=== PATIENT | female | born 1970 | race Caucasian/White ===

== ENCOUNTER 2019-04-29 10:48 | Outpatient (CLI) | payer OTHER ==
--- NOTE | 2019-04-29 11:41 | RAD ---
EXAM: 3 views of the lumbosacral spine HISTORY: Low back pain COMPARISON: None FINDINGS: 3 lateral views of the lumbosacral spine shows normal height and alignment of the vertebral bodies and intervertebral discs without fracture or subluxation. Small osteophytes are seen throughout the lumbar spine with intervertebral disc space narrowing at L4/5. Alignment is unchanged with flexion and extension. The sacroiliac joints are unremarkable. IMPRESSION: Mild degenerative changes with unchanged alignment with bending
== END 2019-04-29 10:49 | disposition home or self-care (01) ==
LOC: TBSIIMAG 10:48
PROVIDERS: ATTEND Neurological Surgery
DX: M54.5 Low back pain (principal); M47.816 Spondylosis without myelopathy or radiculopathy, lumbar region
CPT/HCPCS: 72100

== ENCOUNTER 2019-05-21 05:34 | Day surgery (SDC) | payer OTHER ==
[2019-05-20 17:32] VITALS: BMI 26.9
--- NOTE | 2019-05-20 21:01 | HP ---
CHIEF COMPLAINT: "I'm here for back surgery." HISTORY OF PRESENT ILLNESS: Ms. Bauman is a 48-year-old female with lower back pain radiating to her right leg. Injections, nerve block, exercise, core strengthening, and time has not made the right leg pain any better. She still has the pain radiating through the gluteal area posterior thigh and sometimes the lateral calf. There is no new weakness or numbness. MEDICAL HISTORY: Denies any medical history. PAST SURGICAL HISTORY: No surgeries. HOSPITALIZATIONS: No past hospitalizations. FAMILY HISTORY: Father is alive. Mother is alive. Three children are alive, one with diabetes and cancer. SOCIAL HISTORY: She does not smoke. She does not have drug use or illicit drugs. She is a social alcohol drinker. ALLERGIES: NO KNOWN DRUG ALLERGIES. MEDICATIONS: 1. Estradiol 2 mg. 2. Omeprazole 40 mg. 3. Atorvastatin 40 mg. 4. Trazodone 100 mg. 5. Duloxetine 60 mg. 6. Bupropion 150 mg. REVIEW OF SYSTEMS: CONSTITUTIONAL: Denies fever or chills. EARS, NOSE, AND THROAT: Denies change in vision or hearing. CARDIAC: Denies chest pain, shortness of breath, or diaphoresis. PULMONARY: Denies shortness of breath, cough, or hemoptysis. GI: Denies fecal incontinence, abdominal pain, nausea, vomiting, diarrhea, change in stool formation, or consistency. : Denies urinary incontinence, trouble with urination, frequency of urination , or bloody urine. SKIN: Denies skin rash, bruising, bleeding, or skin masses. MUSCULOSKELETAL: As per history of present illness. NEUROLOGIC: As per history of present illness. PSYCHOLOGIC: Denies anxiety, depression, behavior changes, or crying. PHYSICAL EXAMINATION: VITAL SIGNS: Height 5 feet 6 inches, weight 155 pounds. HEENT: Pupils are equal. NECK: Normal, soft, and supple. No masses are noted. ROM is intact and nonpainful. NEUROLOGIC: Awake, alert, oriented x3. Memory, attention, fund of knowledge, and language are normal. Cranial nerves 2 through 12 grossly intact. Gait and station are normal. Motor exam, there is normal strength in the iliopsoas, quadriceps, hamstrings, anterior tib, EHL, gastroc, and toe flexors. Lower extremity exam, orthopedic, 2+ SLR on the right. DIAGNOSTIC STUDIES: MRI shows a right L4-5 HNP with stenosis and right L5 root stretch. X-ray of the lumbar spine, flex ex is stable. IMPRESSION: 1. Lumbar radiculopathy. 2. Intervertebral disk disorder with radiculopathy in the lumbar region. PLAN: 1. Lumbar radiculopathy stenosis, but no left leg symptoms at all. 2. Failed conservative therapy. 3. Right L4-5 microdiskectomy. 4. Anesthesia clearance. INFORMED CONSENT: I discussed the indications, risks, benefits, alternatives and expected results from surgery. The risks discussed included, but were not limited to, bleeding, infection, CSF leak, nerve damage, weakness, incontinence, cauda equina injury, paralysis, ventilator dependency, wheelchair dependency, loss of vision, cardiopulmonary complications of anesthesia or . Long-term complications discussed included but were not limited to spinal instability and future surgery. She understands the risk and is willing to proceed. Job ID: [id number] [facility]
[2019-05-21] MEDS ORDERED: EPINEPHrine 1 MG/ML AMP ONE (06:13)
[2019-05-21] MEDS ORDERED: Thrombin 5000 UNITS/5 ML VIAL ONE (06:13)
[2019-05-21] MEDS ORDERED: Bupivacaine PF 0.5% 30 ML VIAL ONE (06:13)
[2019-05-21] MEDS ORDERED: Fentanyl 100 MCG/2 ML VIAL ONE ×3 (06:57→07:38)
[2019-05-21] MEDS ORDERED: Sodium Chloride 0.9% 1,000 ML IV SCH (10:00)
[2019-05-21] MEDS ORDERED: diphenhydrAMINE 25 MG CAP PO PRN (10:01)
[2019-05-21] MEDS ORDERED: Meperidine HCl/PF 25 MG/ML VIAL ONE (10:02)
[2019-05-21] MEDS ORDERED: Promethazine 25 MG TAB PO PRN (10:07)
[2019-05-21] MEDS ORDERED: Milk Of Magnesia 30 ML UDCUP PO PRN (10:08)
[2019-05-21] MEDS ORDERED: Zolpidem Tartrate 5 MG TAB PO PRN (10:08)
[2019-05-21] MEDS ORDERED: traMADol HCl 50 MG TAB PO PRN (10:20)
[2019-05-21] MEDS ORDERED: Ondansetron PF 4 MG/2 ML Vial ONE (10:25)
[2019-05-21] MEDS ORDERED: Lidocaine 1% PF 5 ML VIAL ONE (10:25)
[2019-05-21] MEDS ORDERED: Dexamethasone 20 MG/5 ML VIAL ONE (10:25)
[2019-05-21] MEDS ORDERED: Glycopyrrolate 0.2 MG/ML 5 ML SYRINGE ONE (10:25)
[2019-05-21] MEDS ORDERED: PROPOFOL 200 MG/20 ML VIAL ONE (10:25)
[2019-05-21] MEDS ORDERED: EPHEDRINE 25 MG/5 ML SYRINGE ONE (10:25)
[2019-05-21] MEDS ORDERED: Rocuronium Bromide 10 MG/ML (10ML VIAL) ONE (10:25)
--- NOTE | 2019-05-21 10:52 | OP ---
DATE OF PROCEDURE: 05/21/2019 SERVICE: Neurosurgery. LOCAL DRIVER: Vincent Canales PA-C PREOPERATIVE INDICATION: Treat pain and prevent neurological deterioration. PREOPERATIVE DIAGNOSIS: Lumbar intervertebral disk disease at L4-L5 with right L5 radiculopathy. POSTOPERATIVE DIAGNOSIS: Lumbar intervertebral disk disease at L4-L5 with right L5 radiculopathy. PROCEDURES PERFORMED: Partial hemilaminectomy, medial facetectomy, foraminotomy, and microdiskectomy at right L4-L5, operating microscope. PREOPERATIVE MEDICATION: Ancef 2 g IV. DRAIN NUMBER: Zero. DRAIN TYPE: None. DESCRIPTION OF PROCEDURE: The patient was brought to the operating room. General endotracheal anesthesia was induced. The patient was positioned prone on the operating table with her chest and hips supported by gel-filled chest rolls. A lateral fluoro radiograph was used to plan our incision. The lumbar skin was sterilely prepped and draped. We opened with a 10-blade knife, and we controlled bleeding with bipolar and monopolar cautery. We used monopolar cautery to dissect to the thoracodorsal fascia. We incised the fascia on the right side of the midline and reflected the paraspinal muscles off the spinous process and laminae of L4 and L5. A self-retaining retractor was placed and a lateral fluoro radiograph to confirm the level upon which we were operating. We then used Kerrison rongeurs to perform a partial hemilaminectomy and medial facetectomy on the right side at L4-L5. The operating microscope was brought into the field. Under microscopic magnification and using microsurgical techniques, we removed the yellow ligament. We identified the common thecal sac and the L5 nerve root. We gently retracted these medially. There was a disk protrusion in the ventral epidural space that was densely calcified. We incised the disk mass, reduced much of the osteophyte back into the interspace with pushing curettes and then removed these with pituitary rongeurs. We ensured there was a wide foraminotomy over the L5 and the L4 nerve roots. We ensured that the nerve roots were not under stretcher compression at the completion of our diskectomy. We irrigated copiously with bacitracin irrigation. We infused local anesthetic in the paraspinal muscles. We closed the wound in anatomical layers. We applied a sterile dressing. This was a clean case, no contamination. Job ID: [id number]
[2019-05-21] MEDS ORDERED: CEFAZOLIN 2 GM in Premix Bag 1 BAG IVPB SCH (15:00)
[2019-05-21] MEDS ORDERED: tiZANidine HCl 4 MG TAB PO SCH (21:00)
== END 2019-05-21 12:05 | disposition home or self-care (01) ==
LOC: SDC 05:34
PROVIDERS: ATTEND Neurological Surgery
PROC: 0SB20ZZ Excision of Lumbar Vertebral Disc, Open Approach (ICD-10-PCS; principal; 2019-05-21)
DX: M48.061 Spinal stenosis, lumbar region without neurogenic claudication (principal); M51.16 Intervertebral disc disorders with radiculopathy, lumbar region; E78.5 Hyperlipidemia, unspecified; F32.9 Major depressive disorder, single episode, unspecified; Z79.899 Other long term (current) drug therapy
CPT/HCPCS: 76000; J0171; J0690; J1100; J2001; J2175; J2405; J2704; J3010; J3370; J3490; S0020

== ENCOUNTER 2019-06-09 08:49 | Inpatient (IN) | payer OTHER ==
[2019-06-09] MEDS ORDERED: Morphine 2 MG/ML SYRINGE ONE (09:13)
[2019-06-09] MEDS ORDERED: Morphine 4 MG/ML VIAL ONE (09:13)
[2019-06-09] MEDS ORDERED: Ondansetron PF 4 MG/2 ML Vial ONE ×4 (09:30→11:42)
[2019-06-09] MEDS ORDERED: Glycopyrrolate 0.2 MG/ML 5 ML SYRINGE ONE (09:50)
[2019-06-09] MEDS ORDERED: PHENYLEPHRINE-NS 100 MCG/ML 10 ML SYRINGE ONE (09:50)
[2019-06-09] MEDS ORDERED: Lidocaine 1% PF 5 ML VIAL ONE (09:50)
[2019-06-09] MEDS ORDERED: PROPOFOL 200 MG/20 ML VIAL ONE (09:50)
[2019-06-09] MEDS ORDERED: Rocuronium Bromide 10 MG/ML (10ML VIAL) ONE (09:50)
[2019-06-09 10:19] LABS: #Eosinphils 0.2 thou/uL (0.0-0.7); #Lymphocytes 1.4 thou/uL (1.20-3.40); #Monocytes 0.8 thou/uL (0.11-0.59); #Neutrophils 11.1 thou/uL (1.40-6.50); %Basophils 0.3 % (0.0-1.0); %Eosinophils 1.7 % (0.0-10.0); %Lymphocytes 10.3 % (21.0-51.0); %Monocytes 6.1 % (0.0-10.0); %Neutrophils 81.6 % (42.0-75.0); Hemoglobin 12.6 g/dL (12.0-16.0); Mean Corpuscular HGB CONC 33.8 g/dL (32.0-36.0); Mean Corpuscular Hemoglobin 30.3 pg (27.0-31.0); Mean Corpuscular Volume 89.7 fL (78.0-98.0); Mean Platelet Volume 8.5 fL (7.4-10.4); Platelet Count 298 thou/uL (130-400); RBC Distribution Width 11.3 % (11.5-14.5); Red Blood Cell (RBC) Count 4.14 mill/uL (4.20-5.40); White Blood Cell (WBC) Count 13.7 thou/uL (4.8-10.8)
[2019-06-09 10:35] LABS: ALT (SGPT) 10 U/L (8-55); AST (SGOT) 15 U/L (5-34); Albumin 3.5 g/dL (3.5-5.0); Alkaline Phosphatase 67 U/L (40-110); Anion Gap 11 mmol/L (10-20); BUN (Urea Nitrogen) 10 mg/dL (7.0-18.7); Bilirubin, Total 0.5 mg/dL (0.2-1.2); Calc. Creatinine Clearance 0 mL/min (70-130); Calcium 8.6 mg/dL (7.8-10.44); Carbon Dioxide 28 mmol/L (22-29); Chloride 104 mmol/L (98-107); Estimated GFR-MDRD 82; Globulin 2.1 g/dL (2.4-3.5); Glucose 82 mg/dL (70-105); Potassium 3.9 mmol/L (3.5-5.1); Protein, Total 5.6 g/dL (6.0-8.3); Sodium 139 mmol/L (136-145)
--- NOTE | 2019-06-09 11:10 | MRI ---
MRI lumbar spine without and with gadolinium contrast HISTORY: Back pain. Increasing wound drainage from recent surgery. FINDINGS: Centered within the deep subcutaneous tissues of the lower back, an irregular shaped periph erally enhancing fluid collection at the postoperative bed extends over 7.1 cm length from the L4 to the S1 levels. It is 3.6 cm greatest depth by 3.4 cm greatest width. The fluid collection does not extend into the deeper soft tissues. It is surrounded by edema. Edema without fluid collection and enhancement are also present within the postoperative bed at the p ostoperative elements and within the posterior subcutaneous tissues extending superiorly to the L1 level. The conus medullaris has a normal appearance. No enhancing central canal lesions. Vertebral body heights are maintained. Scattered small hemangiomas within the bone marrow. Desiccatio n of the lowest 3 intervertebral discs. T12-L1, L1-2, L2-3: Mild osteophytosis. Minimal disc bulges. Central canal and neural foramina are pa tent. L3-4: Disc space narrowing. Mild posterior disc bulge and circumferential degenerative changes. Moder ate stenosis of the central canal. Mild right and moderate to severe left foraminal stenoses. L4-5: Discogenic endplate changes of the bone marrow most pronounced at this level. Disc space narrow ing and posterior disc bulge. Right laminectomy defect. With edema and enhancement consistent with recent surgery. Circumferential degenerative changes. Moderate central canal stenosis persists. Far r ight lateral disc protrusion with severe stenosis of the right neural foramen. Moderate to severe stenosis left neural foramen. L5-S1: Mild osteophytosis. Central canal is patent. Moderate bilateral foraminal stenoses. IMPRESSION : Large deep subcutaneous irregular shaped peripherally enhancing fluid collection at the lower back, n ot extending into the deeper tissues. No enhancing abnormalities or fluid collections at the deep postoperative bed. Multilevel degenerative changes, including central canal and foraminal stenoses as detailed above.
[2019-06-09] MEDS ORDERED: Morphine 10 MG/ML VIAL ONE (11:41)
[2019-06-09] MEDS ORDERED: Midazolam HCl 2 mg/2 ml Vial ONE (12:42)
[2019-06-09] MEDS ORDERED: HYDROmorphone 0.5 MG/0.5 ML SYRINGE ONE (12:42)
[2019-06-09] MEDS ORDERED: Fentanyl 100 MCG/2 ML VIAL ONE ×3 (12:42→15:20)
[2019-06-09] MEDS ORDERED: Lidocaine 2% Jelly 5 ML TUBE ONE (12:42)
[2019-06-09] MEDS ORDERED: Promethazine HCl 25 MG/ML VIAL IM PRN ×2 (12:55→14:27)
[2019-06-09] MEDS ORDERED: Promethazine 25 MG TAB PO PRN (12:55)
[2019-06-09] MEDS ORDERED: Morphine 2 MG/ML SYRINGE SLOW IVP PRN (12:55)
[2019-06-09] MEDS ORDERED: traMADol HCl 50 MG TAB PO PRN ×2 (12:55)
[2019-06-09] MEDS ORDERED: Acetaminophen/Codeine 30-300mg Tablet PO PRN ×2 (12:55)
[2019-06-09] MEDS ORDERED: tiZANidine HCl 4 MG TAB PO PRN (12:55)
[2019-06-09] MEDS ORDERED: Ondansetron PF 4 MG/2 ML Vial IVP PRN (12:55)
[2019-06-09] MEDS ORDERED: Acetaminophen 325 MG TAB PO PRN (12:55)
[2019-06-09] MEDS ORDERED: Sodium Chloride 0.9% 10 ML ONE (13:02)
[2019-06-09] MEDS ORDERED: traZODone HCl 50 MG TAB PO PRN (13:20)
[2019-06-09] MEDS ORDERED: Magnevist 469MG/ML 20 ML VIAL ONE (13:36)
[2019-06-09] MEDS ORDERED: CEFAZOLIN 2 GM in Premix Bag 1 BAG IVPB SCH (14:00)
[2019-06-09] MEDS ORDERED: Promethazine HCl 25 MG/ML VIAL SLOW IVP PRN (14:27)
[2019-06-09] MEDS ORDERED: Ondansetron HCl/PF 4 MG/2 ML Vial IVP PRN (14:27)
--- NOTE | 2019-06-09 15:26 | OP ---
DATE OF PROCEDURE: 06/09/2019 GLASS GRINDER: Meri Darnell PA-C. PROCEDURES PERFORMED: Exploration of lumbar wound and washout of lumbar wound. DESCRIPTION OF PROCEDURE: The patient was brought to the operating room and intubated. She was rolled in the prone position on gel-filled chest rolls. Previous incision was re-opened. We encountered semi-purulent fluid, that was swabbed in two different locations in the wound. There did not seem to be significant fascial penetration. The wound was then extensively irrigated with bacitracin irrigation, and a necrotic debris as well as an old suture was removed. Vancomycin powder was applied, and the wound was closed in anatomic layers over drain. Job ID: [id number]
--- NOTE | 2019-06-09 15:32 | PRG ---
DATE OF SERVICE: 06/09/2019 SUBJECTIVE: The patient is a 48-year-old woman three weeks out from lumbar microdiskectomy by Dr. Beckwith. She has been doing well, but recently has developed a feeling of fever and even some chills and developed some purulent drainage out of the superior aspect of her wound. She was evaluated here in the emergency room, found to be afebrile with mild leukocytosis. She did have some redness and drainage at the superior aspect of the wound. MRI scan has been performed showing a fluid collection posteriorly. IMPRESSION AND PLAN: We will take to surgery for same bacteriology and washout. Discussed with the patient. Discussed the indications, benefits, and alternatives. She expressed understanding and wished to proceed. Job ID: [id number]
[2019-06-09] MEDS: Sodium Chloride 0.9% 1,000 ML IV SCH (16:00)
[2019-06-09] MEDS ORDERED: [UNRECOGNIZED DRUG - REMARK] IVPB PRN (16:32)
[2019-06-09] MEDS: Piperacillin/Tazobactam 3.375 GM in Sodium Chloride 0.9% 100 ML IVPB SCH ×2 (17:46→23:39)
[2019-06-09] MEDS: Vancomycin 1 GM in Premix Bag 1 BAG IVPB SCH (17:50)
[2019-06-09 18:34] VITALS: BMI 28.3
--- NOTE | 2019-06-09 18:52 | HP ---
HISTORY OF PRESENT ILLNESS: The patient is a 48-year-old female with a past medical history of GERD, depression, who is 2-1/2 weeks status post a right L4-L5 microdiskectomy on 05/20, who presented to the ER earlier today for increased right-sided back pain with radiation to the right hip and subjective fever/chills. The patient reports that over the weekend, she developed gradually progressive severe right-sided back pain. This radiates into the right low back and right hip region. Also developed new serous drainage from the incision. She has no classic radicular features. This was associated with a feeling of subjective fever and chills at home. She presented to the emergency department for further evaluation. At that time , labs were notable for an elevated WBC at 13.5 as well as an elevated CRP at 6.5. Her ESR was normal. An MRI of the lumbar spine with and without contrast was done, which was notable for a large fluid collection approximately 7 x 3.5 cm at the surgical bed. PAST MEDICAL HISTORY: The patient has a past medical history of GERD and depression. PAST SURGICAL HISTORY: No prior surgeries other than her recent right L4-L5 microdiskectomy on 05/20. She has no prior hospitalizations other than her outpatient surgery on 05/20. FAMILY HISTORY: Noncontributory. SOCIAL HISTORY: She does not smoke, drink, or use any drugs. ALLERGIES: SHE HAS NO KNOWN ALLERGIES. CURRENT MEDICATION LIST: 1. Estradiol 2 mg tablet. 2. Omeprazole 40 mg tablet. 3. Atorvastatin 40 mg tablet. 4. Trazodone 100 mg tablet. 5. Duloxetine 60 mg tablet. 6. Bupropion 150 mg tablet. REVIEW OF SYSTEMS: Per HPI. PHYSICAL EXAMINATION: GENERAL: The patient is awake, alert, in no acute distress. VITAL SIGNS: She is currently afebrile and she has normal vital signs. HEENT: Head, normocephalic and atraumatic. Eyes, PERRLA. Extraocular movements are intact. ENT, oral mucosa is pink, intact, and moist. She has normal voice. NECK: Nontender. Free active range of motion. No meningismus or nuchal rigidity. CARDIAC: Regular rate and rhythm. MUSCULOSKELETAL: She is moving all 4s without difficulty. No focal motor weakness. No reflex asymmetry. No positive straight leg raise. BACK: Her incision is intact, but is slightly red over the superior part of the incision. Some active serous drainage from the top of the incision. She had some slight swelling to the right side of the incision, this area is tender to touch. NEURO: A and O x4. No focal neurologic deficits are appreciated. ASSESSMENT AND PLAN: The patient is now 2-1/2 weeks status post right L4-L5 microdiskectomy with a new large postoperative fluid collection, subjective fever, elevated white count, and CRP. These are concerning for underlying wound infection. We will take her to the OR for lumbar wound washout. I will also start her on broad-spectrum IV antibiotics, Vancomycin and Zosyn. Pharmacy will assist with dosing of the vancomycin. I have consulted Dr. Walters for assistance in management of this likely infectious process as well as the Medical Team for medical management. Dr. Velazco is in agreement with this plan. Job ID: [id number] MTDD
[2019-06-10] MEDS: Sodium Chloride 0.9% 1,000 ML IV SCH ×3 (03:06→13:39)
[2019-06-10] MEDS: Vancomycin 1 GM in Premix Bag 1 BAG IVPB SCH (04:43)
[2019-06-10 05:33] LABS: Band 3 % (5-11); Hemoglobin 11.6 g/dL (12.0-16.0); Hypochromia SLIGHT = 6-15 cells (100X) (0-5/hpf); Lymphocytes 5 % (21-51); MDiff Complete? YES; Mean Corpuscular Hemoglobin 30.8 pg (27.0-31.0); Mean Corpuscular Volume 90.5 fL (78.0-98.0); Mean Platelet Volume 8.2 fL (7.4-10.4); Monocytes 9 % (0-10); Neutrophil 83 % (42-75); Platelet Count 320 thou/uL (130-400); Platelet Morphology Comment Appears Adequate; RBC Distribution Width 11.3 % (11.5-14.5); Red Blood Cell (RBC) Count 3.78 mill/uL (4.20-5.40); White Blood Cell (WBC) Count 13.2 thou/uL (4.8-10.8)
[2019-06-10] MEDS: Piperacillin/Tazobactam 3.375 GM in Sodium Chloride 0.9% 100 ML IVPB SCH ×2 (06:08→13:02)
--- NOTE | 2019-06-10 07:14 | PRG ---
DATE OF SERVICE: 06/10/2019 She is one day out from irrigation and debridement of a postoperative fluid collection. She feels markedly better than she did before surgery yesterday. Following her diskectomy, she never had any return of her radicular pain, but over the days leading up to readmission, she had worsening back pain, fever, and malaise. All that has gone away. Overnight, no fevers are recorded. Her vital signs were stable. Her neurological examination is excellent she is ambulatory. The drain put out 25 mL. My plan today is to ask our colleagues in Infectious Disease if there is an antibiotic regimen that would allow her to be dismissed from the hospital today and narrow down the regimen once the cultures and sensitivities are back. Given the description of the fluid from Dr. Velazco, and the gram-positive cocci on the Gram stain, I suspect a Staph epidermidis infection, unclear whether it is going to be sensitive or resistant to the penicillins. Job ID: [id number] MTDD
[2019-06-10] MEDS ORDERED: Bupropion 150 MG SR TAB PO SCH ×2 (09:00→21:00)
[2019-06-10] MEDS ORDERED: DULoxetine 60 MG CAP PO SCH ×2 (09:00→21:00)
--- NOTE | 2019-06-10 12:04 | PDOC.EVN ---
Event Note - Event Note Event Note: Hospitalist consult dictated; Lumbar post-oeprative fluid/abscess - gram stain GPC in pairs[strep] and clusters[staph] michelle grew s.aureus pending sensitivity on vanc + zosyn.
--- NOTE | 2019-06-10 13:06 | CON ---
DATE OF CONSULTATION: REASON FOR CONSULT: Medical management. HISTORY OF PRESENT ILLNESS: A 48-year-old female with history of depression, GERD, hyperlipidemia who presented secondary to back pain and subjective fever with recent history of L4-L5 diskectomy for a herniated disk surgical intervention on May 20. The patient's presentation initially was back pain radiating to the right hip and lower back. Also, labs with white count of 13.5 as well as CRP of 6.5. MRI showed large fluid collection in the lumbar area. Subsequently, the patient undergone a drainage of the postoperative fluid collection. She had undergone lumbar wound washout yesterday. Subsequently, she was given Ancef as well as vancomycin and Zosyn. Dr. Walters will be following for antibiotic choice for discharge. Hospitalist consulted for other comorbid management if any. The patient has no history of diabetes or hypertension. She denies any constipation, diarrhea, or urinary symptoms. She has a history of depression and being treated adequately. REVIEW OF SYSTEMS: Thirteen-point review of systems reviewed with the patient and pertinent addressed in the History of Present Illness, rest are negative. ALLERGIES: SHE IS ALLERGIC TO HYDROCODONE. PAST MEDICAL HISTORY: GERD, hyperlipidemia, and depression. PAST SURGICAL HISTORY: Hysterectomy in 1999. SOCIAL HISTORY: The patient does not smoke or drink alcohol. She lives with her spouse and she has 3 grown-up kids. FAMILY HISTORY: Significant for hypertension and hyperlipidemia. HOME MEDICATIONS: 1. Estradiol 2 mg at bedtime. 2. Cymbalta 60 mg at bedtime. 3. Lipitor 40 mg at bedtime. 4. Bupropion 150 mg daily. 5. Omeprazole 40 mg daily. 6. Trazodone 100 mg daily. PHYSICAL EXAMINATION: VITAL SIGNS: Temperature 98.3, pulse 63, blood pressure 120/73, and saturating 93% on room air. The patient is alert and oriented x4, very healthy, young-looking female, resting comfortably. She denies any pain currently. She is quite anxious to go home. CARDIOVASCULAR: Regular rate and rhythm without murmurs, rubs, or gallops. LUNGS: Clear to auscultation bilaterally without wheezing, rales, or rhonchi. ABDOMEN: Soft, nontender, and nondistended. She has a drain in her back, serosanguineous fluid noted in the bulb. PSYCHIATRIC: Appropriate mood and affect. LABORATORY DATA: CMP panel in the normal range. CRP 6.51. Her white count is 13.2, hemoglobin 11.6, and platelet of 320. Her lumbar fluid washout grew Staph aureus currently. IMPRESSION AND PLAN: This is a 48-year-old female with recent laminectomy, presenting with postoperative fluid collection versus abscess that has been drained yesterday. Currently, she is on vancomycin and Zosyn. Her white count is coming down. Her fluid Gram-stain shows gram-positive cocci in pairs and clusters and the culture grew Staphylococcus aureus. Sensitivity pending. She would obviously benefit either with Bactrim versus Augmentin versus doxycycline upon discharge. We will await for further ID recommendation as well. I appreciate the consult. Please call us if you have any further questions. Depression. The patient is on duloxetine as well as bupropion. Hyperlipidemia. Follow with primary care physician for periodic lipid level check. Nothing further to add. Job ID: [id number] MTDD
[2019-06-10 15:10] VITALS: BP 135/78; TEMP 98.4
--- NOTE | 2019-06-10 18:05 | CON ---
DATE OF CONSULTATION: REASON FOR CONSULTATION: Postop infection. HISTORY OF PRESENT ILLNESS: A 48-year-old who has a history of hyperlipidemia and chronic low back pain with a disk herniation, who underwent laminectomy on May 20. The patient initially did well, but then developed progressively worsening pain, which she felt was a pulled muscle, but it became obvious that there was an infection. She had an I and D by Dr. Velazco, and it appeared that the process appears to be superficial both on clinical inspection as well as on radiological evaluation. She is feeling marked good improvement and pretty much 100% resolution of the pain. Currently, denies headaches, visual symptoms, sore throat, odynophagia, or dysphagia. No respiratory symptoms. No abdominal pain. Voiding without difficulty. No constipation. The back pain has markedly improved. PAST MEDICAL HISTORY: GERD, depression, chronic low back pain, hyperlipidemia. PAST SURGICAL HISTORY: Microdiskectomy, L4-L5. FAMILY HISTORY: Noncontributory. SOCIAL HISTORY: Never smoker. ALLERGIES: NONE. CURRENT MEDICATIONS: 1. Codeine. 2. Wellbutrin. 3. Cymbalta. 4. Morphine. 5. Zofran. 6. Protonix. 7. Zosyn. 8. Vancomycin. PHYSICAL EXAMINATION: VITAL SIGNS: T-max 98.6, blood pressure 130/70, pulse 74, respirations 16, and O2 saturation 95%. GENERAL: Appears well. She has a drain still in the surgical site. Apparently, she is going to go home with a drain. HEENT: Normal. NECK: Supple. LUNGS: Symmetric and clear breath sounds. S1 and S2 regular rate. ABDOMEN: Soft, not distended or tender. No ascites. No bladder distention. EXTREMITIES: No other joint inflammatory process noted. NEURO: Nonfocal. LABORATORY DATA: White cell count is 13.7, 13.2, hemoglobin 11.6, platelets 320 with 82% neutrophils. Chemistry normal. Albumin 3.5. Microbiology with Staph aureus, pending susceptibilities should be ready later tonight or maybe first thing in the morning. IMAGING STUDIES: Showed an MRI with abscess in the lower back, which does not extend into the deeper tissues. ASSESSMENT: Chronic low back pain, laminectomy with postoperative Staphylococcus aureus infection with pending susceptibilities. The inflammatory process seems to be limited to the superficial layers, and she is clinically stable to be discharged. It does not look like she had blood culture submitted, and I will go ahead and submit 2 sets of blood cultures to at least have some documentation. Now, we had blood culture submitted and let her go home on oral Zyvox. I gave her 3 days' worth of medication to her local pharmacy, and by tomorrow, I asked her to give me a call and I will let her know if we are going to be able to switch her to a cheaper medication or if we will have to continue with Zyvox. We will follow her up in clinic in the next 1 to 2 weeks. Job ID: [id number]
[2019-06-10] MEDS ORDERED: Linezolid 600 MG TAB PO SCH (21:00)
--- NOTE | 2019-06-11 10:09 | DIS ---
DATE OF ADMISSION: 06/09/2019 DATE OF DISCHARGE: 06/10/2019 HOSPITAL COURSE: Ms. Bauman is a 48 yo female, postop right L4-5 microdiskectomy on 05/20. She was seen in the ED on 06/09/2019 and evaluated for lower back pain and developed new serous drainage from the incision site. MRI showed fluid collection, question of postoperative abscess infection. She was brought to the operating room for immediate washout, and a ED drain was placed. Lumbar swab was collected, which grew out Staphylococcus aureus. Infectious Disease was consulted, and the patient was discharged postop day 1 from surgical floor with blood cultures x2 and Zyvox for MRSA coverage. ID would change the antibiotics once sensitivities came back. Vital signs during her stay were 132/84 for blood pressure, temperature 98.9. No fevers were noted in the electronic notes. CONDITION ON DISCHARGE: The patient had no emergencies. Condition was stable for discharge. MEDICATIONS: Home-going medications were reviewed. FOLLOWUP: Followup arrangements made by our process coordinator in the clinic and called to the patient. ACTIVITIES: Restrictions were reviewed in person. Wound care showers are acceptable. The patient should pat the incision dry, but not submerge it under the surface of the body of water for two months. Job ID: [id number] MTDD
--- NOTE | 2019-06-11 22:08 | PQF ---
[employer] Crystal Reports Winform Viewer DMITRY HOWELL JASON MD *r* [id number] SURG B- [id number] CLINICAL DOCUMENTATION CLARIFICATION FORM: POST DISCHARGE Addendum to original discharge summary date: ____ Late entry note date: __ DATE: 06/11/19 ATTN: Karthik Vaz Please exercise your independent, professional judgment in responding to the clarification form. Clinical indicators are provided on the bottom of this form for your review Can you please further clarify the diagnosis fo the patient? Please check appropriate box(es): [ ] Sepsis due to post operative wound infection/abscess [ ] Post operative wound infection/abscess without sepsis [ ] Other diagnosis please specify [ ] Unable to determine In addition, please specify: Present on Admission (POA): [ ] Yes [ ] No [ ] Unable to determine For continuity of documentation, please document condition throughout progress notes and discharge summary. Thank You. CLINICAL INDICATORS - SIGNS / SYMPTOMS / LABS Microbiology- 06/08 lumbar swab Methicillin resistant S.aureus ED Provider pg.3- wound infection H and P pg.1- Develop new serous drainage from the incision. H and P pg.1- elevated WBC at 13.5 RISK FACTORS status post Microdiskectomy- H and P pg.1 Postop infection- Consult pg.1 Lumbar post-operative fluid/abscess- Event note TREATMENTS: Exploration of lumbar wound ans washout of lumbar wound- OP Report pg.1 Lumbar Spine MRI 06/08 IV Antibiotics- MAY IV Fluids- MAR Infectious Consult- Dr. Walters Lumbar swab- Microbiology (This form is maintained as a part of the permanent medical record) 2014 [employer]. All Rights Reserved [email or web address]
--- NOTE | 2019-06-11 22:15 | PQF ---
[facility] [facility] Crystal Reports DMITRY Huerta JONATHAN A MD [id number] [facility] B- 3325 [id number] CLINICAL DOCUMENTATION CLARIFICATION FORM: POST DISCHARGE Addendum to original discharge summary date: ____ Late entry note date: __ DATE: 06/11/19 ATTN: Praveen Velazco Please exercise your independent, professional judgment in responding to the clarification form. Clinical indicators are provided on the bottom of this form for your review Can you please further clarify the procedure being performed to the patient? Please check appropriate box(s): [ x ] Excisional Debridement: [ x ] Excised [ ] Cut away [ ] Other: Depth / layer: (deepest layer of debridement): [ ] Skin[ ] SubQ Tissue [ x ] Fascia [ ] Muscle [ ] Tendon [ ] Bone Appearance of wound: (e.g., down to fresh bleeding tissue, etc.)___ Margins: (please specify): / x x Instruments used: [ ] Scissors [ ] Scalpel [ ] Curette [ ] Soft tissue clipper [ ] Other: [ ] Non-excisional Debridement: (Removal by flushing, brushing, chemical, or washing) Depth / layer: (deepest layer of debridement): [ ] Skin[ ] Subcutaneous [ ] Fascia [ ] Muscle [ ] Tendon [ ] Bone [ ] Incision and Drainage only (No Debridement): Depth:[ ] Skin [ ] Subcutaneous [ ] Fascia [ ] Muscle [ ] Tendon [ ] Bone [ ] Escharectomy [ ] Other procedure diagnosis [ ] Unable to determine For continuity of documentation, please document condition throughout progress notes and discharge summary. Thank You. CLINICAL INDICATORS - SIGNS / SYMPTOMS / LABS OP Report pg.1- Exploration of lumbar wound ans washout of lumbar wound OP Report pg.1- previous incision was reopened OP report pg.1- there did not seem to be significant facial penetration OP report pg.1- the wound was the extensively irrigated with bacitracin irrigation and a necrotic debris as well an old sure was removed PN 4/6- irrigation and debridement of postoperative fluid collection RISK FACTORS Lumbar post-operative fluid/abscess- Event note status post Microdiskectomy- H and P pg.1 Postop infection- Consult pg.1 TREATMENTS: Exploration of lumbar wound ans washout of lumbar wound-OP Report pg.1 Lumbar Spine MRI 06/08 IV Antibiotics- MAR IV Fluids- MAR (This form is maintained as a part of the permanent medical record) 2014 [employer] All Rights Reserved [email or web address]
--- NOTE | 2019-06-13 09:46 | PQF ---
DMITRY HOWELL NEO ISABEL [id number] SURG B- 3325 [id number] CLINICAL DOCUMENTATION CLARIFICATION FORM: POST DISCHARGE Addendum to original discharge summary date: ____ Late entry note date: __ DATE: 06/13/19 ATTN: Dr. Darnell Please exercise your independent, professional judgment in responding to the clarification form. Clinical indicators are provided on the bottom of this form for your review Can you please further clarify the diagnosis fo the patient? Please check appropriate box(es): [ ] Sepsis due to post operative wound infection/abscess [ X ] Post operative wound infection/abscess without sepsis [ ] Other diagnosis please specify [ ] Unable to determine In addition, please specify: Present on Admission (POA): [X ] Yes [ ] No [ ] Unable to determine For continuity of documentation, please document condition throughout progress notes and discharge summary. Thank You. CLINICAL INDICATORS - SIGNS / SYMPTOMS / LABS Microbiology- 06/08 lumbar swab Methicillin resistant S.aureus ED Provider pg.3- wound infection ED- VITAL SIGNS: BP 132/82, Pulse 105, Resp 20, Temp 98.9 H and P pg.1- Develop new serous drainage from the incision. H and P pg.1- elevated WBC at 13.5 Consultation- Postoperative Staphylococcus aureus infection with pending susceptibles Event Note Dr. Tucker- Lumbar post-operative fluid/abscess- gram stain GPC in pairs (strep) and clusters (staph). Maegan grew s.aureus RISK FACTORS status post Microdiskectomy- H and P pg.1 Postop infection- Consult pg.1 Lumbar post-operative fluid/abscess- Event note TREATMENTS: Exploration of lumbar wound ans washout of lumbar wound- OP Report pg.1 Lumbar Spine MRI 06/08 IV Antibiotics- MAR IV Fluids- MAR Infectious Consult- Dr. Walters Lumbar swab- Microbiology (This form is maintained as a part of the permanent medical record) 2014 [employer] All Rights Reserved Ilya [email or web address] PARVEZ
== END 2019-06-10 18:20 | disposition home or self-care (01) | DRG 858 ==
LOC: ERS 08:49 → SURG B 13:12
PROVIDERS: ADMIT Student in an Organized Health Care Education/Training Program; ATTEND Student in an Organized Health Care Education/Training Program
PROC: 0JB70ZZ Excision of Back Subcutaneous Tissue and Fascia, Open Approach (ICD-10-PCS; principal; 2019-06-09)
PROC: 0J970ZZ Drainage of Back Subcutaneous Tissue and Fascia, Open Approach (ICD-10-PCS; 2019-06-09)
DX: T81.41XA Infection following a procedure, superficial incisional surgical site, initial encounter (principal); Y83.8 Other surgical procedures as the cause of abnormal reaction of the patient, or of later complication, without mention of misadventure at the time of the procedure; F41.9 Anxiety disorder, unspecified; F32.9 Major depressive disorder, single episode, unspecified; K21.9 Gastro-esophageal reflux disease without esophagitis; E78.5 Hyperlipidemia, unspecified; N20.0 Calculus of kidney; B95.62 Methicillin resistant Staphylococcus aureus infection as the cause of diseases classified elsewhere; E78.00 Pure hypercholesterolemia, unspecified; Z88.5 Allergy status to narcotic agent; Z79.899 Other long term (current) drug therapy; Z90.710 Acquired absence of both cervix and uterus
CPT/HCPCS: 36415; 72158; 80053; 82565; 84520; 85025; 85652; 86140; 87040; 87070; 87077; 87186; 87205; 96361; 96374; 96375; 96376; A9579; J0690; J1170; J2001; J2250; J2270; J2405; J2543; J2704; J3010; J3370; J3490

== ENCOUNTER 2019-06-14 19:15 | Emergency (ER) | payer OTHER ==
[~2019-06-14 19:15] MED LIST: Magnevist 469MG/ML 20 ML VIAL ONE
[2019-06-14 19:52] LABS: #Basophils 0.1 thou/uL (0.0-0.2); #Eosinphils 0.5 thou/uL (0.0-0.7); #Lymphocytes 2.4 thou/uL (1.20-3.40); #Monocytes 0.6 thou/uL (0.11-0.59); %Basophils 0.9 % (0.0-1.0); %Eosinophils 6.2 % (0.0-10.0); %Monocytes 6.6 % (0.0-10.0); %Neutrophils 58.2 % (42.0-75.0); Hemoglobin 12.9 g/dL (12.0-16.0); Mean Corpuscular HGB CONC 34.2 g/dL (32.0-36.0); Mean Corpuscular Hemoglobin 30.7 pg (27.0-31.0); Mean Corpuscular Volume 89.8 fL (78.0-98.0); Mean Platelet Volume 7.7 fL (7.4-10.4); Platelet Count 398 thou/uL (130-400); RBC Distribution Width 11.4 % (11.5-14.5); Red Blood Cell (RBC) Count 4.22 mill/uL (4.20-5.40); White Blood Cell (WBC) Count 8.6 thou/uL (4.8-10.8)
[2019-06-14 20:32] LABS: ALT (SGPT) 11 U/L (8-55); AST (SGOT) 15 U/L (5-34); Albumin 3.6 g/dL (3.5-5.0); Alkaline Phosphatase 66 U/L (40-110); Anion Gap 12 mmol/L (10-20); BUN (Urea Nitrogen) 11 mg/dL (7.0-18.7); Bilirubin, Total 0.2 mg/dL (0.2-1.2); Calc. Creatinine Clearance 0 mL/min (70-130); Calcium 8.8 mg/dL (7.8-10.44); Carbon Dioxide 28 mmol/L (22-29); Chloride 104 mmol/L (98-107); Estimated GFR-MDRD 82; Globulin 2.5 g/dL (2.4-3.5); Glucose 105 mg/dL (70-105); Potassium 3.8 mmol/L (3.5-5.1); Protein, Total 6.1 g/dL (6.0-8.3); Sodium 140 mmol/L (136-145)
--- NOTE | 2019-06-14 21:46 | MRI ---
MRI LUMBAR SPINE WITH AND WITHOUT CONTRAST: 06/14/19 INDICATIONS: Lumbar surgery four weeks ago. Recent MRI from 06/09/19 demonstrated an abscess collection in the poste rior subcutaneous tissues. FINDINGS: There continues to be a peripherally enhancing fluid signal collection in the posterior subcutaneous tissues posterior to the L4-5 level which measures up to 7 cm craniocaudal x approximately 4 cm AP di mension. There is inflammatory signal change extending in the subcutaneous tissues superiorly to the T12 level. Inflammatory signal changes with enhancement extends into the paraspinal musculature on th e right to the S2 level. There is laminectomy change on the right at L4-5. Inflammatory enhancement is seen in the operative s ite at this level extending to the epidural space. I cannot exclude infection extending to the epidur al space. There is no evidence of epidural abscess collection. The vertebral bodies maintain height and alignment. There are degenerative disc and end plate change s at L4-5 with disc bulge paracentrally on the right at this level similar to the prior exam. Vertebr al body signal otherwise appears normal and stable with no evidence of osteomyelitis. There is high T2 signal within the disc space at L4-5 which is similar to the prior exam. There is no significant end plate irregularity, although discitis cannot be excluded. IMPRESSION: Extension of subcutaneous inflammatory process posteriorly. There is a fluid abscess collection poste rior to the L4-5 level within the subcutaneous tissues with inflammatory signal change extending supe riorly and inferiorly from this location. Inflammatory enhancement involves the paraspinal musculatur e on the right extending to the sacrum. There is enhancement at the operative bed on the right at L4- 5 extending to the laminectomy site and to the epidural space. This could be postoperative enhancemen t although inflammatory extension to the epidural space cannot be excluded. No evidence of epidural f luid or abscess collection. POS: AGW
== END 2019-06-14 22:07 | disposition home or self-care (01) ==
LOC: ERS 19:15
DX: T81.41XA Infection following a procedure, superficial incisional surgical site, initial encounter (principal); M54.5 Low back pain; F41.9 Anxiety disorder, unspecified; F32.9 Major depressive disorder, single episode, unspecified; E78.00 Pure hypercholesterolemia, unspecified; Z79.899 Other long term (current) drug therapy
CPT/HCPCS: 36415; 72158; 80053; 83605; 85025; 85652; 86140; 87040; A9579

== ENCOUNTER 2019-11-12 15:23 | Outpatient (CLI) | payer BC ==
--- NOTE | 2019-11-12 16:19 | RAD ---
LUMBAR SPINE: 11/12/19 Four views. HISTORY: Low back pain. FINDINGS: Lumbar vertebrae maintain normal height and alignment. There is loss of disc space at L4-5. Mild dege nerative spurring from the L4 and L5 vertebrae. Mild facet hypertrophy at L4-5 and L5-S1. No evidence of listhesis. Alignment appears preserved in flexion and extension. IMPRESSION: Degenerative changes at L4-5 as described with loss of disc space and hypertrophic spurring. POS: AH
== END 2019-11-12 15:24 | disposition home or self-care (01) ==
LOC: SCSRAD 15:23
PROVIDERS: ATTEND Neurological Surgery
DX: M54.5 Low back pain (principal); M47.816 Spondylosis without myelopathy or radiculopathy, lumbar region; M46.06 Spinal enthesopathy, lumbar region
CPT/HCPCS: 72120

== ENCOUNTER 2019-11-14 13:41 | Outpatient (CLI) | payer BC ==
--- NOTE | 2019-11-14 15:59 | MRI ---
MRI OF THE LUMBAR SPINE WITH AND WITHOUT CONTRAST: 11/14/19 INDICATIONS: Low back pain. Surgery in May and June 2019. COMPARISON: Comparison made to MRI lumbar spine dated 06/14/19. FINDINGS: Lumbar vertebrae maintain height. There are degenerative and postoperative changes at L4-5. The fluid signal collection in the subcutaneous tissues posteriorly noted on the prior study at L4-5 has resolved. There is no fluid signal collection seen today. There is enhancement at this site toda y which could represent postop change and/or residual inflammatory change. There continues to be enha ncement extending along the medial aspect of the right paraspinal musculature at the L4-5 level. This enhancement does extend to the epidural space abutting the posterior thecal sac on the right. There is signal seen in the anterior spinal canal on the right at L4-5 which does compress the anteri or thecal sac. This does show diffuse enhancement on postcontrast images indicating postop scar from the discectomy. There may be residual disc bulge into the right foramina and laterally on the right. No significant change at the other lumbar levels. IMPRESSION: Resolution of the fluid collection seen in the subcutaneous tissues posterior to L4 on 06/14/19. There continues to be enhancement within the subcutaneous tissues at this location with enhancement extend ing along the right paraspinal musculature to the epidural space which could be postoperative. Postop erative enhancement in anterior spinal canal on the right is noted. POS: AGW
== END 2019-11-14 13:42 | disposition home or self-care (01) ==
LOC: SCSMRI 13:41
PROVIDERS: ATTEND Neurological Surgery
DX: M54.5 Low back pain (principal); Z98.890 Other specified postprocedural states
CPT/HCPCS: 72158

== ENCOUNTER 2022-03-14 12:48 | Outpatient (CLI) | payer BC ==
[2022-03-14 13:26] LABS: Hemoglobin 13.2 g/dL (12.0-15.5); Mean Corpuscular HGB CONC 33.8 g/dL (32.0-36.0); Mean Corpuscular Hemoglobin 30.1 pg (27.0-33.0); Mean Platelet Volume 10.5 fl (7.4-10.4); Platelet Count 331 10x3/uL (150-450); RBC Distribution Width 13.1 % (11.5-14.5); Red Blood Cell (RBC) Count 4.38 10x6/uL (3.90-5.03); White Blood Cell (WBC) Count 6.6 10x3/uL (3.5-10.5)
[2022-03-14 13:47] LABS: INR-International Normal Ratio 0.9; PTT 24.9 sec (22.0-33.0); Prothrombin Time 9.9 sec (9.5-12.1)
== END 2022-03-14 12:49 | disposition home or self-care (01) ==
LOC: LABBT 12:48
PROVIDERS: ATTEND Neurological Surgery
DX: Z01.818 Encounter for other preprocedural examination (principal); M51.26 Other intervertebral disc displacement, lumbar region
CPT/HCPCS: 85027; 85610; 85730; 93005; 93010

== ENCOUNTER 2022-03-17 10:19 | Day surgery (SDC) | payer OTHER ==
[2022-03-15 14:30] VITALS: BMI 29.1
[2022-03-17] MEDS ORDERED: Neomycin-Polymyxin 1 ML AMP ONE (10:36)
[2022-03-17] MEDS ORDERED: Bupivacaine HCl 0.5%/Epinephrine 1:200,000/PF 30 ml Vial ONE (10:36)
[2022-03-17] MEDS ORDERED: Vancomycin 1 GM VIAL ONE (10:36)
[2022-03-17] MEDS ORDERED: Thrombin 5000 UNITS/5 ML VIAL ONE (10:36)
[2022-03-17] MEDS ORDERED: Fentanyl 250 MCG/5 ML VIAL ONE (11:39)
[2022-03-17] MEDS ORDERED: CEFAZOLIN 2 GM VIAL ONE (12:02)
[2022-03-17] MEDS ORDERED: Midazolam HCl 2 mg/2 ml Vial ONE (12:02)
[2022-03-17] MEDS ORDERED: Sodium Chloride 0.9% 100 ML ONE (12:02)
[2022-03-17] MEDS ORDERED: PHENYLEPHRINE-NS 100 MCG/ML 10 ML SYRINGE ONE (12:28)
[2022-03-17] MEDS ORDERED: Ondansetron PF 4 MG/2 ML Vial ONE (12:28)
[2022-03-17] MEDS ORDERED: ePHEDrine 50 MG/ML VIAL ONE (12:28)
[2022-03-17] MEDS ORDERED: PROPOFOL 200 MG/20 ML VIAL ONE (12:28)
[2022-03-17] MEDS ORDERED: NEOSTIGMINE 3 MG/3 ML SYR 3 MG/3 ML SYRINGE ONE (12:28)
[2022-03-17] MEDS ORDERED: Rocuronium Bromide 10 MG/ML (10ML VIAL) ONE (12:28)
[2022-03-17] MEDS ORDERED: Dexamethasone 20 MG/5 ML VIAL ONE (12:28)
[2022-03-17] MEDS ORDERED: Glycopyrrolate 0.2 MG/ML 5 ML SYRINGE ONE (12:28)
[2022-03-17] MEDS ORDERED: Lidocaine 1% PF 5 ML VIAL ONE (12:28)
[2022-03-17] MEDS ORDERED: Fentanyl 100 MCG/2 ML VIAL ONE (15:32)
[2022-03-17] MEDS ORDERED: Morphine 4 MG/ML VIAL ONE (15:45)
[2022-03-17] MEDS ORDERED: Morphine 2 MG/ML VIAL ONE (16:05)
== END 2022-03-17 17:09 | disposition home or self-care (01) ==
LOC: SDC 10:19
PROVIDERS: ATTEND Neurological Surgery
PROC: 01NB0ZZ Release Lumbar Nerve, Open Approach (ICD-10-PCS; principal; 2022-03-17)
PROC: 0SB20ZZ Excision of Lumbar Vertebral Disc, Open Approach (ICD-10-PCS; principal; 2022-03-17)
DX: M51.16 Intervertebral disc disorders with radiculopathy, lumbar region (principal); I10 Essential (primary) hypertension; K21.9 Gastro-esophageal reflux disease without esophagitis; E78.00 Pure hypercholesterolemia, unspecified; Z86.14 Personal history of Methicillin resistant Staphylococcus aureus infection; Z79.890 Hormone replacement therapy; Z79.899 Other long term (current) drug therapy; Z88.5 Allergy status to narcotic agent
CPT/HCPCS: J1100; J2250; J2270; J2272; J2405; J2704; J3010; J3370; J3490